=== PATIENT | male | born 1995 | race Caucasian/White ===

== ENCOUNTER 2019-09-02 14:55 | Inpatient (IN) | payer OTHER ==
[~2019-09-02] VITALS: Ht 175.3 cm; Wt 81.8 kg
[2019-09-02] MEDS ORDERED: CITA10TA68 PO (15:25)
[2019-09-02 15:54] LABS: BASOPHILS % (AUTO) 0.6 % (0.0-2.0); EOSINOPHILS % (AUTO) 1.3 % (1.0-6.0); HEMATOCRIT 40.1 % (41-53); HEMOGLOBIN 13.6 g/dL (13.5-17.5); LYMPHOCYTES # (AUTO) 1.5 K/uL (1.0-4.8); LYMPHOCYTES % (AUTO) 24.4 % (22.0-44.0); MEAN CORPUSCULAR HEMOGLOBIN 30.3 pg (26.0-34.0); MEAN CORPUSCULAR HGB CONC 33.9 G/dL (31.0-37.0); MEAN CORPUSCULAR VOLUME 90 fL (80-100); MONOCYTES # (AUTO) 0.5 K/uL (0.1-1.0); MONOCYTES % (AUTO) 7.6 % (2.0-9.0); NEUTROPHILS % (AUTO) 66.1 % (40.0-70.0); PLATELET COUNT (AUTO) 252 K/uL (150-450); RED BLOOD CELL COUNT(AUTO) 4.48 MIL/uL (4.50-5.90)
[2019-09-02] MEDS ORDERED: ACETAMINOPHEN 325 MG TABLET PO PRN ×2 (16:30→20:30)
[2019-09-02] MEDS ORDERED: 0.9% SODIUM CHLORIDE 10 ML SYRINGE IVP PRN (16:30)
[2019-09-02] MEDS ORDERED: ONDANSETRON HCL 4 MG/2 ML VIAL IVP PRN (16:30)
[2019-09-02 16:39] LABS: ANION GAP 7 mmol/L (8-16); CALCIUM, TOTAL 9.9 mg/dL (8.8-10.5); CARBON DIOXIDE 30 mmol/L (22-29); CHLORIDE 104 mmol/L (98-107); CREATININE 0.95 mg/dL (0.60-1.30); GLOMERULAR FILTR. RATE CALC > 60 mL/min (>60); GLUCOSE,RANDOM 92 mg/dL (70-110); POTASSIUM 4.2 mmol/L (3.5-5.1); SODIUM SERUM 141 mmol/L (136-145); UREA NITROGEN, BLOOD 4 mg/dL (7-18)
[2019-09-02 16:44] LABS: ALANINE AMINOTRANSFERASE 43 U/L (12-78); ALBUMIN 4.2 g/dL (3.4-5.0); ALKALINE PHOSPHATASE 63 U/L (46-116); ASPARTATE AMINOTRANSFERASE 65 U/L (15-37); BILIRUBIN,TOTAL 0.5 mg/dL (0.1-1.0); TOTAL PROTEIN, SERUM 7.6 g/dL (6.4-8.2)
[2019-09-02 18:30] VITALS: BP 131/77
[2019-09-02 19:37] LABS: AMPHET/METH SCREEN,URINE NEGATIVE (NEGATIVE); BARBITURATE SCREEN, URINE NEGATIVE (NEGATIVE); BENZODIAZEPINES SCREEN,URINE NEGATIVE (NEGATIVE); CANNABINOID SCREEN,URINE NEGATIVE (NEGATIVE); COCAINE SCREEN,URINE NEGATIVE (NEGATIVE); METHADONE SCREEN, URINE NEGATIVE (NEGATIVE); OPIATE SCREEN,URINE NEGATIVE (NEGATIVE)
[2019-09-02 19:40] LABS: PHENCYCLIDINE SCREEN,URINE NEGATIVE (NEGATIVE)
[2019-09-02] MEDS ORDERED: MAG HYDROX/AL HYDROX/SIMETH ES 30 ML SUSPENSION UDCUP PO PRN (20:30)
[2019-09-02] MEDS ORDERED: CloNIDine HCL 0.1 MG TABLET PO PRN (20:30)
[2019-09-02] MEDS ORDERED: PETROLATUM,WHITE 28 GM JELLY TP PRN (20:30)
[2019-09-02] MEDS ORDERED: GuaiFENesin/D-METHORPHAN [SUGAR-FREE] 200-20MG/10 ML SYRUP UDCUP PO PRN (20:30)
[2019-09-02] MEDS ORDERED: IBUPROFEN 400 MG TABLET PO PRN (20:30)
[2019-09-02] MEDS ORDERED: DOCUSATE SODIUM 100 MG CAPSULE PO PRN (20:30)
[2019-09-02] MEDS ORDERED: LOPERAMIDE HCL 2 MG CAPSULE PO PRN (20:30)
[2019-09-02] MEDS ORDERED: MAGNESIUM HYDROXIDE SUSPENSION 30 ML UDCUP PO PRN (20:30)
[2019-09-02] MEDS ORDERED: ALBUTEROL SULFATE HFA 90 MCG/PUFF 8 GM INHALER IH PRN (20:30)
[2019-09-02] MEDS ORDERED: NICOTINE 14 MG/24 HOUR PATCH TD PRN (20:30)
[2019-09-02] MEDS ORDERED: ONDANSETRON HCL 4 MG TABLET PO PRN (20:30)
[2019-09-02 20:48] VITALS: BP 107/70
[2019-09-03 05:10] VITALS: BP 104/62
[2019-09-03 07:42] VITALS: BP 104/57
[2019-09-03 15:57] VITALS: BP 111/65
[2019-09-03 19:46] VITALS: BP 119/59
[2019-09-04 04:00] VITALS: BP 111/79
[2019-09-04 15:40] VITALS: BP 107/57
[2019-09-04 19:24] VITALS: BP 98/45
[2019-09-04 23:26] VITALS: BP 115/66
[2019-09-05 05:26] VITALS: BP 98/48
[2019-09-05 08:25] VITALS: BP 104/55
[2019-09-05 16:40] VITALS: BP 114/66
[2019-09-05] MEDS: OLANZapine 5 MG TABLET PO SCH (20:06)
[2019-09-05] MEDS: CITALOPRAM HYDROBROMIDE 20 MG TABLET PO SCH (20:06)
[2019-09-05 20:17] VITALS: BP 114/62
[2019-09-06 05:11] VITALS: BP 100/60
[2019-09-06 08:07] VITALS: BP 106/58
[2019-09-06 17:43] VITALS: BP 108/60
[2019-09-06 20:11] VITALS: BP 110/63
[2019-09-06] MEDS: OLANZapine 5 MG TABLET PO SCH (20:25)
[2019-09-06] MEDS: CITALOPRAM HYDROBROMIDE 20 MG TABLET PO SCH (20:25)
[2019-09-07 04:22] VITALS: BP 109/53
[2019-09-07 08:16] VITALS: BP 109/53
[2019-09-07 15:47] VITALS: BP 119/62
[2019-09-07 19:15] VITALS: BP 114/79
[2019-09-07] MEDS: CITALOPRAM HYDROBROMIDE 20 MG TABLET PO SCH (20:02)
[2019-09-07] MEDS: OLANZapine 5 MG TABLET PO SCH (20:02)
[2019-09-08 04:30] VITALS: BP 115/52
[2019-09-08 07:30] VITALS: BP 118/52
[2019-09-08 11:29] VITALS: BP 121/47
[2019-09-08 16:00] VITALS: BP 125/78
[2019-09-08] MEDS ORDERED: OLAN5TAB2 PO (16:38)
[2019-09-08] MEDS ORDERED: CITA10TA68 PO (16:38)
== END 2019-09-08 19:22 | DRG 885 ==
LOC: EMS 14:56 → 6S 17:47
PROVIDERS: ADMIT Internal Medicine; ATTEND Internal Medicine
DX: F25.1 Schizoaffective disorder, depressive type (principal); R45.851 Suicidal ideations; F41.9 Anxiety disorder, unspecified; F32.9 Major depressive disorder, single episode, unspecified; F19.10 Other psychoactive substance abuse, uncomplicated
CPT/HCPCS: G0480